=== PATIENT | male | born 1980 | race African-American/Black ===

== ENCOUNTER 2022-05-01 22:10 | Emergency (ER) | payer OTHER ==
[~2022-05-01] VITALS: Ht 165.1 cm; Wt 95.3 kg
[2022-05-01 22:30] VITALS: BP 142/91; TEMP 98.6
[2022-05-01 23:14] LABS: PLATELET COUNT 266 K/uL (142-355)
[2022-05-01 23:22] LABS: POTASSIUM 3.4 mmol/L (3.6-5.2)
== END 2022-05-02 00:20 | disposition home or self-care (01) ==
LOC: ED 22:10
PROVIDERS: Emergency Medicine Emergency Medical Services
DX: R04.0 Epistaxis (principal)
CPT/HCPCS: 80053; 80320; 85027; 85610; 99282